=== PATIENT | female | born 1955 | race Caucasian/White ===

== ENCOUNTER → 2017-06-14 | Outpatient (CLI) | payer BC ==
[~2017-06-14] MED LIST: ASPIRIN81 M2 PO; BETAPACE; CARDIZEM60 MG PO; CARVEDILOL25 MG PO; CERTAGEN PO; COREG CR40 M1 PO; COREG CR40 MG; COUMADIN; COUMADIN PO; COUMADIN5 MG PO; COUMADIN7.5 MG PO; CVS OMEGA-3 KR1 EACH PO; CYMBALTA20 MG; DIGOXIN125 MCG PO; DILTIAZEM 24HR240 MG PO; FLECAINIDE ACET50 MG PO; IBUPROFEN600 MG PO; LISINOPRIL; LORTAB 5/500 TA1 TA1 PO; MOBIC; MULTAQ400 MG; PREMARIN; PROTONIX PO; REGLAN; TIKOSYN250 MCG PO; TOPROL XL
--- NOTE | ~2017-06-14 | MY29 ---
[facility] A Service of [facility] RADIOLOGY TEXT RESULTS PATIENT: DAR SAHA LOCATION: [facility] : 51 UNIT #: [id number] AGE: [address]: Omkar Bowden MD SEX: F ORDER DR: [id number] [facility] [address] [place], [place] [address] [id number] O MR#: [id number] Acc #: [id number] NAME: DAR SAHA : 1955 SEX: F STUDY DATE/TIME: 06/14/2017 9:39 UNIT: [facility] ROOM: STUDY DESCRIPTION: MY [facility] SCREENING W/ CAD BILAT Attending Physician: Omkar Bowden M.D. Ordering Physician: Omkar Bowden M.D. Primary Care Physician: Omkar Bowden M.D. MEDICAL IMAGING REPORT This report is preliminary unless electronic signature is present EXAM Bilateral digital screening mammogram with CAD, 06/14/2017. INDICATIONS 61-year-old female for routine screening. No reported problems. No personal or family history of breast cancer. No surgery. TECHNIQUE CC and MLO views of the breasts were obtained and reviewed with an FDA-approved CAD device. COMPARISON 06/12/2016, 09/29/2013, 03/30/2013, 08/22/2012. FINDINGS Breast parenchyma is composed of scattered fibroglandular densities, and the pattern is unchanged. There is no new dominant nodule, mass, or suspicious cluster of microcalcifications. Faint benign-appearing nodularity and benign calcifications are unchanged. Fibroglandular predominance in the outer hemisphere, left breast, also stable. IMPRESSION Benign screening mammogram; 1-year followup recommended. Patients over the age of 40 are entered into a reminder system with target due date for the next mammogram. A result letter will also be sent to the patient. BIRADS: 2 Benign finding. Dictated by... Ray Andrew M.D. [facility] A Service of [facility] RADIOLOGY TEXT RESULTS PATIENT: DAR SAHA LOCATION: [facility] : 51 UNIT #: [id number] AGE: [address]: Omkar Bowden MD SEX: F ORDER DR: THIS IS AN ELECTRONICALLY VERIFIED REPORT Ray Andrew M.D. at 06/15/2017 7:38 AM Drea TD: 06/14/2017 18:47 JOB #: [id number] MEDICAL IMAGING REPORT Page 1 of 1 COPY
== END | disposition home or self-care (01) ==
LOC: CWCC 09:15
DX: Z12.31 Encounter for screening mammogram for malignant neoplasm of breast (principal)
CPT/HCPCS: G0202